=== PATIENT | male | born 1980 | race Caucasian/White ===

== ENCOUNTER → 2017-05-13 | Outpatient (CLI) | payer OTHER | END | disposition home or self-care (01) | LOC: LAB SHORT 19:16 → LAB EV 19:16 | DX: J34.0 Abscess, furuncle and carbuncle of nose (principal) | CPT/HCPCS: 87070; 87077; 87147; 87186; 87205 ==

== ENCOUNTER → 2017-09-15 | Outpatient (CLI) | payer BC | END | disposition home or self-care (01) | LOC: LAB 14:42 → LAB SHORT 14:42 | DX: R10.9 Unspecified abdominal pain (principal); R19.7 Diarrhea, unspecified | CPT/HCPCS: 87493 ==

== ENCOUNTER 2017-09-20 07:52 | Emergency (ER) | payer OTHER, BC ==
[~2017-09-20] VITALS: Ht 180.3 cm; Wt 79.4 kg
[2017-09-20] MEDS ORDERED: BREO ELLIPTA 21 EACH (08:10)
[2017-09-20] MEDS ORDERED: Lomotil Tablet1 EACH (08:10)
[2017-09-20] MEDS ORDERED: VYVANSE40 MG (08:10)
[2017-09-20] MEDS ORDERED: Ventolin/Prove6.7 GM (08:10)
[2017-09-20] MEDS ORDERED: VARE1 (08:10)
[2017-09-20] MEDS ORDERED: Zanaflex2 M1 PO (08:11)
== END 2017-09-20 09:29 | disposition home or self-care (01) ==
LOC: ER 07:52
DX: M54.6 Pain in thoracic spine (principal); Z88.1 Allergy status to other antibiotic agents; Z88.8 Allergy status to other drugs, medicaments and biological substances; Z79.899 Other long term (current) drug therapy; Z87.891 Personal history of nicotine dependence; Y99.0 Civilian activity done for income or pay
CPT/HCPCS: 72070; 96372; 99283-25; J1885